=== PATIENT | female | born 1955 | race Caucasian/White ===

== ENCOUNTER → 2016-10-21 | Outpatient (CLI) | payer BC ==
[2016-10-21 14:02] LABS: % Iron Saturation 40.4 % (20-50)
== END | disposition home or self-care (01) ==
LOC: LABWHC1 09:20
PROVIDERS: ATTEND Specialist
DX: E03.9 Hypothyroidism, unspecified (principal); K58.9 Irritable bowel syndrome, unspecified; N95.9 Unspecified menopausal and perimenopausal disorder; E55.9 Vitamin D deficiency, unspecified; E23.0 Hypopituitarism; L30.9 Dermatitis, unspecified; T78.1XXA Other adverse food reactions, not elsewhere classified, initial encounter; R10.9 Unspecified abdominal pain; R79.89 Other specified abnormal findings of blood chemistry; R19.7 Diarrhea, unspecified; R14.3 Flatulence
CPT/HCPCS: 36415; 82306; 82728; 82947; 83090; 83525; 83540; 83550; 84305; 84439; 84443; 84466; 84481; 84482; 86376